=== PATIENT | male | born 1975 | race Caucasian/White ===

== ENCOUNTER 2019-01-07 18:44 | Emergency (ER) | payer OTHER ==
[~2019-01-07 18:44] MED LIST: AZITHROMYCIN 2250 MG PO; IBUPROFEN 800800 M1 PO
[2019-01-07] MEDS ORDERED: AMOXICILLIN 50500 MG PO (20:00)
[2019-01-07] MEDS ORDERED: MOBIC7.5 MG PO (20:00)
== END 2019-01-07 21:18 | disposition home or self-care (01) ==
LOC: ER 18:44
DX: H61.22 Impacted cerumen, left ear (principal); M26.602 Left temporomandibular joint disorder, unspecified